=== PATIENT | female | born 1985 | race Caucasian/White ===

== ENCOUNTER → 2016-02-28 | Outpatient (CLI) | payer MEDICAID ==
[~2016-02-28] MED LIST: ASPIRIN 81MG TA81 MG PO; BISOPROLOL 5MG T5 MG PO; CARVEDILOL 25MG25 MG PO; CIPRO 250MG TA250 MG PO; CLINDAMYCIN HC150 M1 PO; CLOPIDOGREL75 MG PO; DIFLUCAN150 MG PO; EFFIENT10 M2 PO; FERROUS SULFAT325 M2 PO; HUMALOG100 U/M1 SC; ISOSORBIDE DINI10 MG NG; KEPPRA 500 MG500 MG PO; KEPPRA750 MG PO; LANCETS1 EACH FS; LANTUS INS100 UNITS/ SC; LEVOTHYROXIN0.075 M1 PO; LIPITOR40 MG PO; LIPITOR80 MG PO; LISINOPRIL2.5 MG PO; MOBIC15 MG PO; PROTONIX 40MG T40 MG PO; SYRINGE1 EA10 SC; TORADOL10 MG PO; VITAMIN C500 M1 PO; WARFARIN SOD5 MG PO; [UNRECOGNIZED DRUG - OTHER] VA
== END ==
LOC: ACC 15:00
DX: I63.9 Cerebral infarction, unspecified (principal); Z79.01 Long term (current) use of anticoagulants; Z51.81 Encounter for therapeutic drug level monitoring
CPT/HCPCS: G0463

== ENCOUNTER 2016-04-02 07:38 | Emergency (ER) | payer MEDICAID ==
[~2016-04-02] VITALS: Ht 162.6 cm; Wt 56.7 kg
[~2016-04-02 07:38] MED LIST changes: -DIFLUCAN150 MG PO; -TORADOL10 MG PO; -[UNRECOGNIZED DRUG - OTHER] VA
[2016-04-02] MEDS ORDERED: [UNRECOGNIZED DRUG - OTHER] VA (08:46)
[2016-04-02] MEDS ORDERED: DIFLUCAN150 MG PO (08:46)
[2016-04-02] MEDS ORDERED: TORADOL10 MG PO (08:47)
--- NOTE | 2016-04-02 08:48 | Emergency Room Report ---
History of Present Illness Time Seen by MD [email or web address] Presenting Problem in Triage Pt arrived:Walked Presenting Problem:C/O PAIN IN L UPPER THIGH/GROIN AREA, PT STATES WOKE UP WITH THIS PAIN THIS MORNING. PT STATES NO INJURY TO GROIN AREA. PT REPORTING PAIN IN R ANKLE R/T "TWISTING" R ANKLE YESTERDAY Onset of symptoms date/time:04/02/16/ or onset unknown for:MEDICAL HX UNKNOWN Treatment Prior to Arrival: [facility] Provided by: Sepsis Risk Assessment: Temp: 97.7 B/P: 111/62 MAP: 78 Pulse: 105 Resp: 16 Recent fever? N Clinical Suspician of Infection? N Mental Status: 1 - Regular (Normal Baseline) Sepsis Risk:Low Sepsis Risk Have you (or family members/close friends) recently traveled outside the [place]? N If Yes, where/when: Have you had exposure to infectious disease within the past month? N TB? Other? Specify: 30 years old white female diabetic who presented to the ED with complains the first one was a burning in the vaginal area with whitish discharge. Dehydration. She denies having nausea vomiting diarrhea dysuria or hematuria. She denies having abdominal pain. Second complaint and she was stepping down and she twisted her RIGHT ankle with resultant pain upon walking. There is no deformity, no loss of movement or color changes. Source patient, RN notes reviewed ALLERGIES Coded Allergies: Sulfa (Sulfonamide Antibiotics) (Severe, -- 02/17/16) Penicillins (-- 02/17/16) amoxicillin (-- 02/17/16) codeine (-- 02/17/16) povidone-iodine (From BETADINE) (-- 02/17/16) soap (From BETADINE) (-- 02/17/16) Home Medications Active Scripts Levothyroxine Sodium (Levothyroxine 0.075MG) 0.075 MG PO DAILY #30 TAB Prov: 02/20/16 WARFARIN SOD (Warfarin 5MG) 4 MG PO DAILY #7 TAB Prov: 02/20/16 Atorvastatin Calcium (Atorvastatin) 80 MG PO DAILY #30 TAB Prov: 02/20/16 Levetiracetam (Keppra 500 Mg Tablet) 750 MG PO BID #60 TAB Prov: 02/20/16 Insulin Glargine (Lantus Insulin Vial) 45 UNITS SC QHS #1 Vial Prov: 02/20/16 INSULIN LISPRO (Humalog) 10 UNITS SC CC #1 Vial Prov: 02/20/16 Syringe Reusable, 10 Ml (Syringe) 1 EACH SC QID #120 SYR Prov: 02/20/16 Lancets 1 EACH FS QID #120 DEV Prov: 02/20/16 History Medical History General CAD? No Angina: No TN: Yes Hypertension? Yes Hyperlipidemia? Yes CHF? No DVT? No PE? No COPD? No Asthma? No Anemia? Yes GERD? No Gastric ulcers? No GI Bleed? No Hernia? No Thyroid Problems? Yes Hypothyroidism? No CVA? No Seizures? Yes Diabetes? Yes Insulin Dependent: Yes Insulin Pump: No Home FSBS? Yes Renal Insuffiency? No End Stage Renal Disease? No UTI? No Stones? Yes BPH? No GB Disease: No Nephritic Syndrome? No Asplenia? No Hepatitis? No Sickle Cell Disease? No Arthritis? No Migraines? Yes Cataracts? No Glaucoma? No MRSA? No HIV? No TB? No Anxiety? No Depression? No Cancer? No More? No Immunization Hx DT/Tetanus > 10 Years Ago Flu [id number] Pneumonia Received In Past Surgical Hx Previous Surgery?Y TUBAL KIDNEY STONES HEART STENTS X3 [employer]HER Hx LMP 1 Month Ago Family History Family Hx Diabetes Yes CAD No Hypertension Yes Hyperlipidemia Yes Cancer No TB No Social History Smoking Hx Smoker: Current Every Day Smoker Tobacco: Yes Type Cigarettes Packs/day < 1 Pack Alcohol Alcohol: No Review of Systems All Other Systems Reviewed and Negative Constitutional no symptoms reported Eyes no symptoms reported ENT no symptoms reported. Respiratory no symptoms reported Cardiovascular no symptoms reported Gastrointestinal no symptoms reported Genitourinary see HPI, vaginal discharge. Musculoskeletal see HPI, joint pain Skin no symptoms reported, see HPI Psychiatric/Neurological no symptoms reported Physical Exam Vital Signs Vital Signs Date Time Temp Pulse Resp B/P Pulse O2 O2 Flow FiO2 Ox Delivery Rate 04/02 0742 97.7 105 16 111/62 95 - WBC >12,000 or <4,000 or 10% bands? 2 or more SIRS Criteria Met? B/P:111/62 MAP:78 Creatinine >2.0? UA output<0.5ml/kg/hr for 2 hrs? Platelet count >100,000? Lactate >2.0mmol/1? INR >1.2 or PTT > than 60 sec? Evidence of Organ Dysfunction? Provider documented clinical suspician of infection? N Sepsis Criteria Count: 1 Sepsis Risk: Low Sepsis Risk General Appearance normal appearance, WD/WN Eye Exam - bilateral eye normal exam, bilateral eye PERRL, bilateral eye EOMI Ear, Nose, Throat hearing grossly normal, normal ENT inspection Neck normal inspection, non-tender, supple, full range of motion Respiratory Status Yes: trachea midline, chest symmetrical, non tender chest. No: respiratory distress. Lung Sounds bilateral: normal breath sounds, lungs clear. 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 No Results/Orders Orders Procedure Date/time Status WET PREP 04/02 840 Active CHRIS PREP 04/02 840 Active PELVIS AP ONLY 04/02 804 Active ANKLE-RT-3 VIEWS 04/02 804 Active Departure Departure Time of Disposition 08 Disposition DC Home or Self Care(routine) Clinical Impression Primary Impression: Vaginal candidiasis Secondary Impressions: Diabetes, Right ankle strain Condition STABLE Referrals Ori ROY,Henri Muñoz. Additional Instructions The patient was advised to comply with that diabetic diet. She claims that her best friend is helping her and her sugars controlled on it was 100 this morning. The patient will be given ankle stirrup, she was advised rest and elevation and ice. The patient follow-up with a primary care physician Dr. Clay in a.m.. Patient was given Diflucan for her vaginal candidiasis and was instructed to follow-up with Dr. Poe if not better. The patient was discharged in a stable condition. Discharge Counseling Counseled pt/family regarding diagnosis, test results, medications/RX, follow up needs Prescriptions Current Visit Scripts Fluconazole (Diflucan 150MG) 150 MG PO DAILY #2 TAB CLOTRIMAZOLE VAGINAL (Clotrimazole) 1 CONCETTA [place] QHS #1 TUBE KETOROLAC TROMETHAMINE (TORADOL 10MG) 10 MG PO Q12HP #6 TAB ED Critical Care Critical Care No If Critical Care minutes are documented, the time involved in the performance of seperately reportable procedures was not counted toward critical care time documented. I directly delivered medical care to this critically ill and/or injured patient. Timely evaluation and treatment was necessary to address the significant organ system(s) dysfunction present in this patient. at 0848
[2016-04-02 09:09] VITALS: BP 111/62
--- NOTE | 2016-04-02 09:35 | RADIOLOGY REPORT PS360 ---
PELVIS AP ONLY HISTORY: Pain PAIN NO INJURY ORDERING PHYSICIAN: Myra Beatty MD PATIENT AGE: 30 years COMPARISON: None FINDINGS: No fracture or dislocation is evident. No significant degenerative change. No lytic or blastic change. The SI joints have an unremarkable appearance. Unremarkable soft tissues. There are bilateral tubal ligation clips. A small bone island is present in the left femoral head at 9 mm IMPRESSION: No acute finding
--- NOTE | 2016-04-02 09:35 | RADIOLOGY REPORT PS360 ---
ANKLE-RT-3 VIEWS HISTORY: Posttraumatic pain with swelling PAIN R/T TWISTED ANKLE ORDERING PHYSICIAN: Myra Beatty MD PATIENT AGE: 30 years COMPARISON: None FINDINGS: No fracture or dislocation. No lytic or blastic change. There is normal mineralization.. The joint spaces are well-preserved. No significant degenerative/arthritic changes. No erosive changes evident. IMPRESSION: Negative, no acute finding
[2016-04-03] MEDS ORDERED: WARFARIN SOD5 MG PO (22:12)
== END 2016-04-02 09:15 | disposition home or self-care (01) ==
LOC: ER 07:38
DX: B37.3 Candidiasis of vulva and vagina (principal); S93.401A Sprain of unspecified ligament of right ankle, initial encounter; X50.1XXA Overexertion from prolonged static or awkward postures, initial encounter; Y92.009 Unspecified place in unspecified non-institutional (private) residence as the place of occurrence of the external cause; E11.9 Type 2 diabetes mellitus without complications; Z79.4 Long term (current) use of insulin